=== PATIENT | female | born 1960 | race Hispanic/Latino ===

== ENCOUNTER 2017-02-09 16:48 | Emergency (ER) | payer OTHER ==
[2017-02-09] MEDS ORDERED: hyperRAB S/D IM ONE (17:05)
[2017-02-09] MEDS ORDERED: RABAVERT RABIES VACCINE(PCEC) IM ONE (17:05)
--- NOTE | 2017-02-09 20:04 | Emergency Department Report ---
ED Recheck HPI - General Chief Complaint: Recheck/Abnormal Lab/Rx Stated Complaint: RABIES SHOT Time Seen by Provider: 02/09/17 19:57 Source: patient Mode of arrival: Ambulatory Limitations: No Limitations - History of Present Illness Initial Comments: Patient reported that she got bit by a dog on to her left leg and right lower thigh area. She says she was seen at yesterday at [facility] and was given her tetanus vaccine and antibiotic for 10 days. Here Rabies shot. He stated that the dog that bit her neighbor's dog and if the house pet. Animal control was notified and they came out but no one is animal control, not an Saturday. Patient reports that she didn't rabies vaccination at [facility]. She denies fever or chills. She reports that the otr owner operator truck driver of the dog told the dog' s rabies shot 5 years ago and that they brought dog to vet today and dog got another rabies shot. Patient gave me dog owners phone number. The dog otr owner operator truck driver's name is Mary Kay via phone and she says she took dog to vet today and that she told that dog does not have rabies. She reports that the only a problem with her dog is that the dog has warm. She also said that dog was updated on vaccination today. She reports that dog is a house pet and never goes outside on the left she is more in the back yard to relieve self. She reports pain 2/ 10 and she is on her antibiotic which she says she is taking . Patient says she cannot remember the name of the antibiotic. She says she came to the emergency room because the nurse line told her to come to the emergency room to be checked out and to get rabies shot. Denies any fever or chills. No numbness or tingling to extremities. Complaint: other (here for rabies vaccination s/p dog bite) Onset/Timin -: days(s) Initial Visit For: animal bite Returns Today for: rabies shot Symptoms Since Prior Visit: no new symptoms Context: other (came in for rabies vaccine) Associated Symptoms: other (bruising whish is getting better) Treatments Prior to Arrival: Given Antibiotics on, Given Pain Meds on - Related Data Allergies Allergy/AdvReac Type Severity Reaction Status Date / Time No Known Allergies Allergy Unverified 02/09/17 17:03 ED Review of Systems ROS: Stated complaint: RABIES SHOT Other details as noted in HPI Comment: All other systems reviewed and negative Constitutional: denies: chills, fever ENT: denies: throat pain Respiratory: no symptoms reported Cardiovascular: denies: chest pain, palpitations, edema, syncope Gastrointestinal: denies: abdominal pain, nausea, vomiting Musculoskeletal: arthralgia. denies: back pain, joint swelling, myalgia Skin: other (dog bite and bruising to lE) Neurological: denies: headache, weakness, numbness, paresthesias, confusion, abnormal gait, vertigo ED Past Medical Hx - Past Medical History Previous Medical History?: No - Surgical History Past Surgical History?: Yes Additional Surgical History: tonsillectomy. tubes in ears - Family History Family history: no significant - Social History Smoking Status: Former Smoker Substance Use Type: Alcohol ED Physical Exam - General Limitations: No Limitations General appearance: alert, in no apparent distress - Head Head exam: Present: atraumatic, normocephalic, normal inspection - Eye Eye exam: Present: normal appearance, PERRL, EOMI Pupils: Present: normal accommodation - ENT ENT exam: Present: normal exam, normal orophraynx, mucous membranes moist - Neck Neck exam: Present: normal inspection, full ROM. Absent: tenderness, meningismus, lymphadenopathy - Respiratory Respiratory exam: Present: normal lung sounds bilaterally. Absent: respiratory distress - Cardiovascular Cardiovascular Exam: Present: regular rate, normal rhythm, normal heart sounds - Extremities Exam Extremities exam: Present: normal inspection, full ROM, tenderness (TTP rt distal inner lateral thigh, with bite wound and ecchymosis.), normal capillary refill, other (no neurovascular compromise. +2pulses.). Absent: pedal edema, joint swelling, calf tenderness - Back Exam Back exam: Present: normal inspection, full ROM - Neurological Exam Neurological exam: Present: alert, oriented X3, normal gait, reflexes normal. Absent: motor sensory deficit - Psychiatric Psychiatric exam: Present: normal affect, normal mood - Skin Skin exam: Present: warm, dry, ecchymosis, other (wound) - Expanded Skin Exam Expanded Type of lesion: Present: bite/sting (dog bite Lt inner lateral and anterior leg with scabbing and no erythema. Bite wound to distal inner lateral thigh with bruising and ttp.) Distribution of rash: LUE (distal leg x 2 bite wounds.), RLE (diatal thigh) Description of rash: Present: tenderness, erythematous, swelling, crusting (Dog bite site to inner lateral thigh ecchymosis). Absent: discharge, fluctuant, indurated ED Course Vital Signs 02/09/17 16:56 Temperature 98.4 F Pulse Rate 69 Respiratory 17 Rate Blood Pressure 143/81 O2 Sat by Pulse 97 Oximetry - Reevaluation(s) Reevaluation #1: 02/09/17 20:14 Patient had an uneventful stay and no rabies vaccination or immunoglobulin ED Recheck MDM - Medical Decision Making ED Course: Patient is status post dog bite and was treated at [facility] and antibiotic pills which patient does not remember the name of the antibiotic but she says she's taken it. The patient is a neighbor and that the dog has rabies. Since that first developed oriented and she was told that the dog got Rabies shot today. I spoke with the Mary Kay pet otr owner operator truck driver and she told me that her dog is a house pet and does not interact with other animals. She said Vet told her today that dog does not have rabies. I reassured patient that I spoke with the dog owners and Mary Kay told me that Vet told her that dog does not have Rabies. Patient had ecchymotic area to her right thigh getting better and she states an antibiotic as prescribed. Primary care physician, increased redness, drainage and swelling at the site to return to the emergency room if continue taking antibiotic until completed. Follow-up with [facility] in schedule an appointment on Saturday. I Discussed if she cannot get in with [facility] patient is to return to the emergency room for follow-up dog bite. Pt voiced Understanding the discharge instructions and discharged home in stable condition. Critical care attestation.: If time is entered above; I have spent that time in minutes in the direct care of this critically ill patient, excluding procedure time. ED Disposition Clinical Impression: Dog bite Qualifiers: Encounter type: sequela Qualified Code(s): W54.0XXS - Bitten by dog, sequela Disposition: DC-01 TO HOME OR SELFCARE Is pt being admited?: No Does the pt Need Aspirin: No Condition: Stable Instructions: Animal Bite (ED) Additional Instructions: Continue to take Antibiotic as prescribed by provider Referrals: [facility] [Outside] - 02/12/17 Forms: Work/School Release Form(ED)
[2017-02-09 20:43] VITALS: BP 149/80
== END 2017-02-09 20:35 | disposition home or self-care (01) ==
LOC: ED 16:48
DX: S71.151D Open bite, right thigh, subsequent encounter (principal); S81.852D Open bite, left lower leg, subsequent encounter; Z87.891 Personal history of nicotine dependence; W54.0XXD Bitten by dog, subsequent encounter
CPT/HCPCS: 90375; 90675; 99282

== ENCOUNTER 2019-11-18 18:38 | Observation (INO) | payer OTHER ==
--- NOTE | 2019-11-18 19:51 | XRay Report ---
AP AND LATERAL VIEWS LEFT ANKLE INDICATION: MAIN: pain, bruising, swelling; c/o L ankle pain after falling 4-5 feet off a ladder. Bruising noted, pain rated 7/10. EMS administered 75 mcg Fentanyl IV, pain now 2/10. No LOC. COMPARISON: No relevant prior imaging study available. FINDINGS: There is a transverse fracture to the base of the medial malleolus. There is a very comminuted predom inantly transverse oblique distal fibular fracture with lateral angulation of the distal fracture fra gment. There may be a subtle fracture through the posterior malleolus. There is anteromedial subluxation of the tibial plafond with respect to the talar dome. There is extensive soft tissue swelling. IMPRESSION: 1. Fracture subluxation of the left ankle, as above. Signer Name: Odell Juarez MD Signed: 11/18/2019 7:46 PM Workstation Name: [id number]
--- NOTE | 2019-11-18 20:24 | XRay Report ---
LEFT TIBIA AND FIBULA, AP AND LATERAL VIEWS INDICATION: MAIN: swelling and pain; pat. in cardboard splint, best images possible. COMPARISON: Ankle exam earlier the same day FINDINGS: Distal tibia and fibular fractures are better characterized on the dedicated ankle exam. No acute fracture is seen in the more proximal left tibia or fibula. IMPRESSION: 1. Ankle findings reported separately. No additional findings. LEFT FOOT AP AND LATERAL VIEWS INDICATION: MAIN: swelling and pain; pat. in cardboard splint, best images possible. COMPARISON: No relevant prior imaging study available. FINDINGS: Ankle findings are reported separately. No acute fracture or dislocation is seen within the foot. IMPRESSION: 1. No acute findings. Ankle findings reported separately. Signer Name: Odell Juarez MD Signed: 11/18/2019 8:20 PM Workstation Name: [id number]
--- NOTE | 2019-11-18 21:09 | Emergency Department Report ---
ED Lower Extremity HPI - General Chief Complaint: Extremity Injury, Lower Stated Complaint: POSS BROKEN (L) ANKLE Time Seen by Provider: 11/18/19 19:26 Source: patient, EMS (She received fentanyl) Mode of arrival: Stretcher Limitations: No Limitations - History of Present Illness MD Complaint: ankle injury -: Sudden, hour(s) (1) Injury: Ankle: Left Type of Injury: other (Jumped off a falling ladder of about 5 feet landed in an unknown position resulting in ankle swelling and awkward positioning not supporting her weight she had to crawl to the front of her yard to receive help but she did not have a cell phone handy.) Severity: moderate Worsens With: weight bearing Context: jumping Associated Symptoms: swelling, unable to bear weight Treatments Prior to Arrival: splint - Related Data Allergies Allergy/AdvReac Type Severity Reaction Status Date / Time No Known Allergies Allergy Verified 11/18/19 21:21 ED Review of Systems ROS: Stated complaint: POSS BROKEN (L) ANKLE Other details as noted in HPI Comment: All other systems reviewed and negative ED Past Medical Hx - Past Medical History Previous Medical History?: No - Surgical History Past Surgical History?: Yes Additional Surgical History: tonsillectomy. tubes in ears - Social History Smoking Status: Former Smoker Substance Use Type: None ED Physical Exam - General Limitations: No Limitations General appearance: alert, in no apparent distress - Head Head exam: Present: atraumatic, normocephalic - Eye Eye exam: Present: normal appearance, PERRL, EOMI Pupils: Present: normal accommodation - ENT ENT exam: Present: normal exam, normal orophraynx, mucous membranes moist - Neck Neck exam: Present: normal inspection, full ROM - Respiratory Respiratory exam: Present: normal lung sounds bilaterally. Absent: respiratory distress - Cardiovascular Cardiovascular Exam: Present: regular rate, normal rhythm. Absent: systolic murmur, diastolic murmur, rubs, gallop - GI/Abdominal GI/Abdominal exam: Present: soft, normal bowel sounds. Absent: guarding - Extremities Exam Extremities exam: Present: normal inspection, normal capillary refill - Expanded Lower Extremity Exam Left Ankle exam: Present: tenderness, swelling, deformity Neuro vascular tendon exam: Present: no vascular compromise. Absent: pulse deficit, abnormal cap refill, motor deficit 1 - Swollen tender in splint pulses 2+ posterior tibialis and dorsalis pedis. Sensation is intact no ecchymosis is is is visualized no skin punctures or wound openings - Back Exam Back exam: Present: normal inspection. Absent: CVA tenderness (R), CVA tenderness (L) - Neurological Exam Neurological exam: Present: alert, oriented X3, CN II-XII intact, normal gait - Psychiatric Psychiatric exam: Present: normal affect, normal mood - Skin Skin exam: Present: warm, dry, intact, normal color. Absent: rash, cyanosis, diaphoretic ED Course Vital Signs 11/18/19 18:43 Temperature 98.0 F Pulse Rate 91 H Respiratory 16 Rate Blood Pressure 110/62 O2 Sat by Pulse 98 Oximetry - Consultations Consultation #1: 11/18/19 21:33 Case was discussed with my attending Dr. Luis Alberto Gunderson who had [id number] with the patient and agree with the need to consult with orthopedic. Consultation #2: 11/18/19 21:34 Case was discussed with orthopedic Dr. Dewey home advised to have the patient to admit so that we would be able to correct this on tomorrow. Advised to admit to the hospitalist and he will for follow-up in the in the a.m. Consultation #3: 11/18/19 21:34 Discussed the case with nurse calderon Lo for admission Critical care attestation.: If time is entered above; I have spent that time in minutes in the direct care of this critically ill patient, excluding procedure time. ED Disposition Clinical Impression: Trimalleolar fracture of ankle, closed Disposition: DC-09 OP ADMIT IP TO THIS HOSP Is pt being admited?: Yes Does the pt Need Aspirin: No Condition: Stable Referrals: PRIMARY CARE,MD [Primary Care Provider] - 3-5 Days
[2019-11-18] MEDS ORDERED: ONDANSETRON 4 MG/2 ML INJ IV PRN (21:14)
--- NOTE | 2019-11-18 21:14 | History and Physical Report ---
History of Present Illness Date of examination: 11/18/19 Date of admission: 11/18/19 Chief complaint: L ankle pain History of present illness: Patient is a 59-year-old female with no prior medical history who presents to [facility] ER today after complaints of a fall. Patient reports using a ladder while cleaning her ibarra outside, the ladder became unsteady causing her to jump to the ground approximately 4 feet. EMS was notified and upon arrival patient was found to be distress with left foot pain and received 75 mcg Fentanyl IV. She was transferred to ER for evaluation, seen evaluated in ED and found to have a Trimalleolar fracture of ankle, closed. Patient admitted for observation, orthopedic surgeon consulted in ED. Patient denies recent ill contacts, fevers or chills at this time. No prior admission for review. Past History Past Medical History: No medical history Past Surgical History: No surgical history, Other (tonsillectomy, ear tubes) Social history: Lives alone Family history: no significant family history Medications and Allergies Allergies Allergy/AdvReac Type Severity Reaction Status Date / Time No Known Allergies Allergy Verified 11/18/19 21:21 Home Medications Medication Instructions Recorded Confirmed Last Taken Type No Known Home Medications [No 11/18/19 11/18/19 Unknown History Reported Home Medications] Review of Systems All systems: negative Musculoskeletal: limitation of motion, fractures Exam - Physical Exam Narrative exam: - Physical Exam Narrative exam: General appearance: Present: No distress noted - EENT Eyes: Present: PERRL ENT: hearing intact, clear oral mucosa - Neck Neck: Present: supple, normal ROM - Respiratory Respiratory effort: normal Respiratory: bilateral: Clear to auscultation - Cardiovascular Heart Sounds: Present: S1 & S2. Absent: rub, click - Extremities Extremities: pulses symmetrical, No edema Peripheral Pulses: within normal limits - Abdominal General gastrointestinal: Present: , non-distended, normal bowel sounds genitourinary: Present: normal - Integumentary Integumentary: Present: Bruising left ankle , clear, warm, dry - Musculoskeletal Musculoskeletal: Left ankle cast, strength equal bilaterally - Psychiatric Psychiatric: appropriate mood/affect, intact judgment & insight - Neurologic Neurologic: CNII-XII intact, moves all extremities - Constitutional Vitals: Temp Pulse Resp BP Pulse Ox 98.0 F 91 H 16 110/62 98 11/18/19 18:43 11/18/19 18:43 11/18/19 18:43 11/18/19 18:43 11/18/19 18:43 Results - Imaging and Cardiology Imaging and Cardiology: AP AND LATERAL VIEWS LEFT ANKLE INDICATION: MAIN: pain, bruising, swelling; c/o L ankle pain after falling 4-5 feet off a ladder. Bruising noted, pain rated 7/10. EMS administered 75 mcg Fentanyl IV, pain now 2/10. No LOC. COMPARISON: No relevant prior imaging study available. FINDINGS: There is a transverse fracture to the base of the medial malleolus. There is a very comminuted predominantly transverse oblique distal fibular fracture with lateral angulation of the distal fracture fragment. There may be a subtle fracture through the posterior malleolus. There is anteromedial subluxation of the tibial plafond with respect to the talar dome. There is extensive soft tissue swelling. IMPRESSION: 1. Fracture subluxation of the left ankle, as above. LEFT FOOT AP AND LATERAL VIEWS INDICATION: MAIN: swelling and pain; pat. in cardboard splint, best images possible. COMPARISON: No relevant prior imaging study available. FINDINGS: Ankle findings are reported separately. No acute fracture or dislocation is seen within the foot. IMPRESSION: 1. No acute findings. Ankle findings reported separately. LEFT TIBIA AND FIBULA, AP AND LATERAL VIEWS INDICATION: MAIN: swelling and pain; pat. in cardboard splint, best images possible. COMPARISON: Ankle exam earlier the same day FINDINGS: Distal tibia and fibular fractures are better characterized on the dedicated ankle exam. No acute fracture is seen in the more proximal left tibia or fibula. IMPRESSION: 1. Ankle findings reported separately. No additional findings. LEFT FOOT AP AND LATERAL VIEWS INDICATION: MAIN: swelling and pain; pat. in cardboard splint, best images possible. COMPARISON: No relevant prior imaging study available. FINDINGS: Ankle findings are reported separately. No acute fracture or dislocation is seen within the foot. IMPRESSION: 1. No acute findings. Ankle findings reported separately. Assessment and Plan Advance Directives: No Reason for no VTE Prophylaxis: Surgical contraindication Plan of care discussed with patient/family: Yes - Patient Problems (1) Trimalleolar fracture of ankle, closed Current Visit: Yes Status: Acute Plan to address problem: Ortho consulted in ED Pain management (2) DVT prophylaxis Current Visit: Yes Status: Acute Plan to address problem: SCDs
[2019-11-18] MEDS: MORPHINE 2 MG/1 ML INJ IV PRN (21:57)
[2019-11-19] MEDS: SODIUM CHLORIDE 0.9% 1000 ML 1,000 ML IV SCH (00:09)
[2019-11-19] MEDS: MORPHINE 2 MG/1 ML INJ IV PRN (02:19)
[2019-11-19 05:40] LABS: Basophils % (Auto) 0.7 % (0.0-1.8); Eosinophils % (Auto) 0.6 % (0.0-4.3); Hematocrit 36.6 % (30.3-42.9); Hemoglobin 12.2 gm/dl (10.1-14.3); Lymphocytes # (Auto) 1.7 K/mm3 (1.2-5.4); Lymphocytes % (Auto) 22.3 % (13.4-35.0); Mean Corpuscular HGB Conc 33 % (30-34); Mean Corpuscular Volume 85 fl (79-97); Monocytes # (Auto) 0.8 K/mm3 (0.0-0.8); Monocytes % (Auto) 10.1 % (0.0-7.3); Platelet Count 239 K/mm3 (140-440); Red Blood Count 4.33 M/mm3 (3.65-5.03); Red Cell Distribution Width 13.4 % (13.2-15.2)
[2019-11-19 05:56] LABS: BUN/Creatinine Ratio 17; Blood Urea Nitrogen 12 mg/dL (7-17); Calcium 8.7 mg/dL (8.4-10.2); Hemolysis Index 5
[2019-11-19] MEDS: ACETAMINOPHEN 325 MG TAB PO PRN (06:46)
--- NOTE | 2019-11-19 09:09 | Anesthesia Consultation ---
Anesthesia Consult and Med Hx Date of service: 11/19/19 - Airway Anesthetic Teeth Evaluation: Dentures ROM Head & Neck: Adequate Mental/Hyoid Distance: Adequate Mallampati Class: Class I Intubation Access Assessment: Good - Pulmonary Exam CTA: Yes - Cardiac Exam Cardiac Exam: RRR - Pre-Operative Health Status ASA Pre-Surgery Classification: ASA1 Proposed Anesthetic Plan: General - Pulmonary Hx Smoking: Yes (Quit ) Hx Respiratory Symptoms: No COPD: No Hx Pneumonia: No Hx Sleep Apnea: No - Cardiovascular System Hx Hypertension: No Hx Heart Attack/AMI: No Hx Angina: No Hx Cardia Arrhythmia: No Hx Peripheral Vascular Disease: No - Central Nervous System Hx Neuromuscular Disorder: No Hx Seizures: No Hx Psychiatric Problems: No - Gastrointestinal Hx Gastroesophageal Reflux Disease: No - Endocrine Hx Renal Disease: No Hx Liver Disease: No Hx Thyroid Disease: No - Other Systems Hx Alcohol Use: Yes (Sparingly) Hx Substance Use: No Hx Obesity: No - Additional Comments Anesthesia Medical History Comments: Patient denied previous anesthesia complications.
--- NOTE | 2019-11-19 09:15 | Anesthesia Day of Surgery ---
Anesthesia Day of Surgery - Day of Surgery Patient Examined: Yes Patient H&P Reviewed: Yes Patient is NPO: Yes
[2019-11-19] MEDS ORDERED: LACTATED RINGERS 1,000 ML IV SCH (11:12)
[2019-11-19] MEDS ORDERED: ceFAZolin/STERILE WATER 2 GM/20 ML SYRINGE IV NR (12:00)
[2019-11-19] MEDS ORDERED: HYDROmorphone 1 MG/1 ML INJ IV PRN (12:12)
[2019-11-19] MEDS ORDERED: propofoL 200 MG/20 ML VIAL IV ONE (12:23)
[2019-11-19] MEDS ORDERED: fentaNYL 100 MCG/2 ML INJ ONE ×2 (13:19→14:25)
[2019-11-19] MEDS ORDERED: ONDANSETRON 4 MG/2 ML INJ ONE (13:19)
[2019-11-19] MEDS ORDERED: LIDOCAINE MPF (2%) 20 MG/1 ML VIAL 5 ML ONE (13:19)
[2019-11-19] MEDS ORDERED: BUPIVACAINE/PF (0.5%) 5 MG/1 ML 30 ML VIAL INFILTRATI ONE ×2 (14:25)
[2019-11-19] MEDS ORDERED: ePHEDrine SULFATE 50 MG/1 ML INJ ONE (14:39)
--- NOTE | 2019-11-19 14:51 | Consultation ---
History of Present Illness - HPI Consult date: 11/19/19 Consult reason: fracture History of present illness: 59 y/o female with c/o left ankle pain and deformity after fall from the ladder at home yesterday, states unable to weight bear afterwards brought to the ED at [facility] where xrays taken revealed displaced bimalleolar fracture... Past History Past Medical History: No medical history Past Surgical History: No surgical history, Other (tonsillectomy, ear tubes) Social history: Lives alone Family history: no significant family history Medications and Allergies Allergies Allergy/AdvReac Type Severity Reaction Status Date / Time No Known Allergies Allergy Verified 11/18/19 21:21 Home Medications Medication Instructions Recorded Confirmed Last Taken Type RX: No Known Home Medications [No 11/18/19 11/18/19 Unknown History Reported Home Medications] Active Meds: Active Medications Acetaminophen (Tylenol) 650 mg PO Q4H PRN PRN Reason: Pain MILD(1-3)/Fever >100.5/ROGERS Last Admin: 11/19/19 06:46 Dose: 650 mg Documented by: Cefazolin Sodium (Ancef/Sterile Water 2 Gm/20 Ml) 2 gm IV PREOP NR Stop: 11/19/19 23:00 Hydromorphone HCl (Dilaudid) 0.5 mg IV Q10MIN PRN PRN Reason: Pain , Severe (7-10) Stop: 11/19/19 23:59 Sodium Chloride (Nacl 0.9% 1000 Ml) 1,000 mls @ 100 mls/hr IV DIRECT CHLOE Last Admin: 11/19/19 00:09 Dose: 100 mls/hr Documented by: Lactated Ringer's (Lactated Ringers) 1,000 mls @ 100 mls/hr IV DIRECT CHLOE Stop: 11/19/19 23:59 Last Admin: 11/19/19 11:36 Dose: 100 mls/hr Documented by: Morphine Sulfate (Morphine) 2 mg IV Q4H PRN PRN Reason: Pain, Moderate (4-6) Last Admin: 11/19/19 02:19 Dose: 2 mg Documented by: Ondansetron HCl (Zofran) 4 mg IV Q8H PRN PRN Reason: Nausea And Vomiting Last Admin: 11/18/19 21:55 Dose: 4 mg Documented by: Sodium Chloride (Sodium Chloride Flush Syringe 10 Ml) 10 ml IV BID CHLOE Last Admin: 11/19/19 00:00 Dose: 10 ml Documented by: Sodium Chloride (Sodium Chloride Flush Syringe 10 Ml) 10 ml IV PRN PRN PRN Reason: LINE FLUSH Physical Examination - Physical exam Narrative exam: left LE - + deformity at ankle, skin intact, decreased active/passive ROM, dis kavon n/v intact, good capillary refill Eyes: PERRL ENT: Positive: clear oral mucosa Respiratory effort: normal Respiratory: bilateral: CTA Rhythm: regular Heart Sounds: Positive: S1 & S2 General gastrointestinal: Positive: soft, non-tender, non-distended, normal bowel sounds Integumentary: clear, warm, dry Neurologic: Positive: CNII-XII intact, moves all extremities, gait normal. Negative: focal deficits - Cervical Spine Neck pain: none Tenderness with palpation: none Full ROM: yes ROM: flexion: normal ROM: extension: normal ROM: rotation right: normal ROM: rotation left: normal ROM: lateral flexion right: normal ROM: lateral flexion left: normal - Lumbar Spine Back pain: none Tenderness with palpation: none Appearance: normal Full ROM: yes ROM: flexion: normal ROM: extension: normal ROM: rotation right: normal ROM: rotation left: normal ROM: lateral flexion right: normal ROM: lateral flexion left: normal Assessment and Plan Displaced left bimalleolar fracture left ankle plan - will require ORIF, followed by PT for gait training
--- NOTE | 2019-11-19 14:54 | Procedure Note ---
Date of procedure: 11/19/19 Pre-op diagnosis: displaced left bimalleolar ankle fracture Post-op diagnosis: same Procedure: Open reduction internal fixation left bimalleolar fracture Procedure The patient was brought to the OR placed on the OR table in the supine position following induction and intubation by anesthesia the patient's left lower extremity was prepped and draped in the usual sterile manner a timeout procedure was done to identify the patient and the correct operative site. The leg was exsanguinated followed by inflation of the pneumatic tourniquet to 300 mmHg. A lateral incision was made along the distal fibula this was taken down sharply through skin subcu directly down today fracture site patient was noted to have a comminuted distal fibular fracture after manipulating the fracture fragments a 8 hole locked tubular plate was applied with screws of various lengths. AP and lateral views obtained via C arm showed good reduction at the fracture site as well as placement of the screws. Next attention was turned to the medial malleolus fracture using close manipulation the fracture fragments were realigned next to threaded guidewires were inserted followed by placement of 2 cannulated screws 50 mm in length again AP and lateral views were obtained sh owing good reduction at the fracture as well as placement of our hardware next the lateral wound was irrigated and was closed in a standard routine fashion postop dressings were applied as well as a well-padded posterior mold the patient tolerated the procedure there were no complications Anesthesia: ROMIE Surgeon: ISIDORO MOCTEZUMA [place] Operator: [place]OR[place] JUDGE Estimated blood loss: minimal Pathology: none Condition: stable Disposition: PACU
[2019-11-19] MEDS ORDERED: IBUPROFEN 600 MG TAB PO PRN (14:55)
[2019-11-19] MEDS ORDERED: MORPHINE 4 MG/1 ML INJ IV PRN (14:55)
[2019-11-19] MEDS ORDERED: HYDROcodone/ACETAMINOPHEN 5-325 MG TAB PO PRN (14:55)
--- NOTE | 2019-11-19 15:34 | XRay Report ---
INTRAOPERATIVE FLUOROSCOPY: LEFT ANKLE INDICATION / CLINICAL INFORMATION: POST OP ORIF LT ANKLE.. TECHNIQUE: Intraoperative spot images were obtained during the procedure. FINDINGS: Images show open reduction and internal fixation of the medial malleolus and left distal fibula. Fluoroscopy Time: Not provided. Fluoroscopy Images: 2. Signer Name: Rodolfo Romero MD Signed: 11/19/2019 3:30 PM Workstation Name: [id number]
--- NOTE | 2019-11-19 16:04 | Progress Note ---
Assessment and Plan (1) Trimalleolar fracture of ankle, closed Current Visit: Yes Status: Acute Plan to address problem: Ortho consulted in ED Pain management, s/p surgery today PT consulted (2) DVT prophylaxis Current Visit: Yes Status: Acute Plan to address problem: SCDs Disposition: Possible discharge tomorrow with home health Physical exam: GENERAL: well-developed and well-nourished white female lying on bed appeared to be in no discomfort. HEENT: Normocephalic. Atraumatic. No conjunctival congestion or icterus. Patient has moist mucous membranes. NECK: Supple. Trachea midline. CHEST/LUNGS: Clear to auscultated bilaterally, breathing nonlabored. No wheezes crackles or rhonchi. HEART/CARDIOVASCULAR: Regular in rate and rhythm. S1 and S2 positive. ABDOMEN: Abdomen is soft, nontender. Patient has normal bowel sounds. SKIN: There is no rash. Warm and dry. NEURO: No focal motor deficit. Follows command. MUSCULOSKELETAL: Left ankle with surgical dressing and restricted movement EXTRIMITY: No edema, no cyanosis or clubbing. Dressing intact on left ankle PSYCH: Cooperative. Subjective Date of service: 11/19/19 Interval history: Patient seen and examined. Medical records and medication list reviewed. No acute event overnight noted by the RN. Patient denies any chest pain or difficulty breathing. Patient is status post surgery today, complains of left ankle pain Discussed plan of care at bedside with patient. Objective - Constitutional Vitals: Vital Signs - 12hr 11/19/19 11/19/19 11/19/19 04:09 04:51 07:27 Temperature 98.8 F 98.8 F Pulse Rate 92 H 88 Respiratory 17 17 Rate Blood Pressure 124/69 127/76 O2 Sat by Pulse 89 92 92 Oximetry 11/19/19 11/19/19 11/19/19 10:35 10:36 11:05 Temperature 101.0 F H 100.0 F H 99.7 F H Pulse Rate 96 H Respiratory 14 Rate Blood Pressure 134/74 O2 Sat by Pulse 96 Oximetry 11/19/19 11/19/19 11/19/19 11:35 15:12 15:15 Temperature 98.5 F 98.6 F Pulse Rate 97 H Respiratory 16 16 Rate Blood Pressure 138/64 O2 Sat by Pulse 97 Oximetry 11/19/19 11/19/19 11/19/19 15:17 15:22 15:27 Temperature Pulse Rate 89 87 87 Respiratory 16 16 12 Rate Blood Pressure 141/76 146/75 146/75 O2 Sat by Pulse 99 99 99 Oximetry 11/19/19 15:33 Temperature Pulse Rate Respiratory 16 Rate Blood Pressure O2 Sat by Pulse Oximetry - Labs CBC & Chem 7: 11/19/19 05:15 11/19/19 05:15 Labs: Abnormal lab results 11/19/19 11/19/19 Range/Units 05:15 05:15 [place] % (Auto) 10.1 H (0.0-7.3) % Glucose 123 H (65-100) mg/dL
--- NOTE | 2019-11-19 17:42 | Post Anesthesia Evaluation ---
- Post Anesthesia Evaluation Patient Participated: Yes Airway Patent: Yes Stable Respiratory Function: Yes Nausea/Vomiting: No Temp > 96.8F: Yes Pain Manageable: Yes Adequeate Hydration: Yes Anesthesia Complications: No
[2019-11-20] MEDS: ACETAMINOPHEN 325 MG TAB PO PRN (00:43)
[2019-11-20] MEDS: SODIUM CHLORIDE 0.9% 1000 ML 1,000 ML IV SCH (00:44)
--- NOTE | 2019-11-20 13:53 | Progress Note ---
Assessment and Plan Status post ORIF left ankle Postop day 1 December discharge to home after physical therapy instructions Return to office in 2 weeks Subjective Date of service: 11/20/19 Interval history: No complaints noted resting comfortably in bed PT started Objective Vital signs: Vital Signs - 12hr 11/20/19 11/20/19 11/20/19 04:41 07:20 11:11 Temperature 98.8 F 98.4 F Pulse Rate 88 77 Respiratory 16 18 Rate Blood Pressure 137/67 139/71 O2 Sat by Pulse 96 98 95 Oximetry Incision: healing, clean and dry Weight bearing status: partial - Labs CBC & BMP: 11/19/19 05:15 11/19/19 05:15
--- NOTE | 2019-11-20 14:25 | Discharge Summary ---
Providers - Providers Date of Admission: 11/18/19 21:15 Date of discharge: 11/20/19 Attending physician: JUAN KEBEDE 11/18/19 21:35 Consult to Physician [CONS] Routine Comment: MYE Ingram spoke with Dr. Dewey @ [phone] Consulting Provider: ISIDORO DEWEY Physician Instructions: Reason For Exam: ankle fracture 11/19/19 14:56 Physical Therapy Evaluation and Treat [CONS] Routine Comment: Reason For Exam: post op evaluation Weight bearing status?: Nonwt bearing Assistive devices?: Yes If so list: Walker Primary care physician: L[employer] Hospitalization Condition: Stable Pertinent studies: Ankle x-ray, tibia-fibula x-ray, foot x-ray Hospital course: 59 y/o female with c/o left ankle pain and deformity after fall from the ladder at home, afterwards brought to the ED at [facility] where xrays taken revealed displaced bimalleolar fracture. Patient was admitted for further evaluation and Mx. Discharge diagnosis and Mx: (1) Trimalleolar fracture of ankle, closed Current Visit: Yes Status: Acute Plan to address problem: Ortho consulted in ED Pain management, s/p surgery 11/19/19 PT consulted and recommended HH (2) DVT prophylaxis Current Visit: Yes Status: Acute Plan to address problem: SCDs Disposition: discharge today with home health Physical exam: GENERAL: well-developed and well-nourished white female lying on bed appeared to be in no discomfort. HEENT: Normocephalic. Atraumatic. No conjunctival congestion or icterus. Patient has moist mucous membranes. NECK: Supple. Trachea midline. CHEST/LUNGS: Clear to auscultated bilaterally, breathing nonlabored. No wheezes crackles or rhonchi. HEART/CARDIOVASCULAR: Regular in rate and rhythm. S1 and S2 positive. ABDOMEN: Abdomen is soft, nontender. Patient has normal bowel sounds. SKIN: There is no rash. Warm and dry. NEURO: No focal motor deficit. Follows command. MUSCULOSKELETAL: Left ankle with surgical dressing and restricted movement EXTRIMITY: No edema, no cyanosis or clubbing. Dressing intact on left ankle PSYCH: Cooperative. Disposition: [id number] HOME UNDER HOME [facility] Time spent for discharge: 34 minutes Core Measure Documentation - Palliative Care Palliative Care/ Comfort Measures: Not Applicable - Core Measures Any of the following diagnoses?: none Exam - Constitutional Vitals: Temp Pulse Resp BP Pulse Ox 98.4 F 77 18 139/71 95 11/20/19 07:20 11/20/19 07:20 11/20/19 07:20 11/20/19 07:20 11/20/19 11:11 Plan Activity: fall precautions Weight Bearing Status: Non-Weight Bearing Diet: low fat, low salt Wound: per your surgeon's advice Follow up with: OC FERNANDEZ MD [Primary Care Provider] - 3-5 Days ISIDORO DEWEY MD [Staff Physician] - 7 Days
[2019-11-20 16:15] VITALS: BP 153/58
== END 2019-11-20 17:55 | disposition home health service (06) ==
LOC: ED 18:38 → 3B-SURG 21:15
PROVIDERS: ADMIT Internal Medicine Geriatric Medicine; ATTEND Internal Medicine
DX: S82.842A Displaced bimalleolar fracture of left lower leg, initial encounter for closed fracture (principal); W11.XXXA Fall on and from ladder, initial encounter; Y93.89 Activity, other specified; Y92.89 Other specified places as the place of occurrence of the external cause
CPT/HCPCS: 27814; 36415; 73590; 73600; 73620; 80048; 85025; 96374; 96375; 96376; 97110; 97116; 97162; 99284; C1713; G0378; J0690; J1170; J2270; J2405; J2704; J3010; J7030; J7120